=== PATIENT | female | born 1995 | race Caucasian/White ===

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

== ENCOUNTER → 2017-01-09 | Outpatient (REF) | payer BC ==
[~2017-01-09] MED LIST: AMOX500C; NAPR550T3; PRED20TA PO
== END ==
LOC: M LAB REF 08:45
PROVIDERS: ATTEND Physician Assistant
DX: J02.9 Acute pharyngitis, unspecified (principal)

== ENCOUNTER → 2017-02-16 | Outpatient (REF) | payer BC ==
[~2017-02-16] MED LIST changes: +NAPR550T22; -NAPR550T3
== END ==
LOC: M LAB REF 17:14
PROVIDERS: ATTEND Physician Assistant
DX: J02.9 Acute pharyngitis, unspecified (principal); J01.10 Acute frontal sinusitis, unspecified

== ENCOUNTER → 2017-03-02 | Outpatient (REF) | payer BC | LOC: M LAB REF 14:14 | PROVIDERS: ATTEND Advanced Practice Midwife | DX: Z11.3 Encounter for screening for infections with a predominantly sexual mode of transmission (principal) ==

== ENCOUNTER → 2017-03-02 | Outpatient (CLI) | payer BC | LOC: M SMT 08:36 | PROVIDERS: ATTEND Advanced Practice Midwife | DX: Z11.3 Encounter for screening for infections with a predominantly sexual mode of transmission (principal) ==

== ENCOUNTER → 2017-03-03 | Outpatient (CLI) | payer BC ==
--- NOTE | 2017-03-03 13:21 | REP ---
PELVIC ULTRASOUND: Real-time sonographic evaluation of the pelvis performed utilizing transabdominal and endovaginal technique. The bladder measures 5.3 x 6.9 x 8.1 cm. The uterus measures 7.2 x 3.6 x 4.0 cm. Endometrial thickness is 5 mm. There is an IUD in place in the endometrial canal. Right ovary measures 2.1 x 1.7 x 2.3 cm. Left ovary is somewhat enlarged measuring 4.3 x 3.1 x 3.9 cm. The left ovary contains a small complex cyst 2.7 x 2.1 x 2.8 cm. There is blood flow seen in each ovary with duplex Doppler evaluation, with no torsion, RI right ovary 0.35 and left ovary 0.54. A small amount of free fluid is seen in the cul-de-sac. IMPRESSION: IUD is seen within the endometrial canal. Small complex cyst left ovary 2.8 cm in maximum diameter. Mild free fluid. Signed by Omid Brantley MD 03/03/2017 05:03 P
== END ==
LOC: M RAD 10:22
PROVIDERS: ATTEND Advanced Practice Midwife
DX: R10.30 Lower abdominal pain, unspecified (principal); N83.202 Unspecified ovarian cyst, left side

== ENCOUNTER → 2017-04-21 | Outpatient (CLI) | payer BC ==
--- NOTE | 2017-04-21 13:17 | REP ---
Pelvic ultrasound including transabdominal and endovaginal ultrasound assessment: The bladder is adequately distended. The uterus is anteverted and normal size measuring 6.4-0.1 x 4.0 cm. The endometrium is not thickened measuring 8.6 ml. There is an IUD within the endometrial canal. I suspect that the fundal portion of the IUD is within the myometrium in the left cornu. The ovaries are normal size. Right ovary measures 2.7 x 2.5 x 2.7 cm. Left ovary measures 2.1 x 1.4 x 1.7 cm. There are no dominant ovarian masses or cysts. There is no free fluid in the pelvis. Impression: There is an IUD. I suspect that the fundal portion of the IUD is within the endometrium in the left cornu. Otherwise, negative pelvic ultrasound. Signed by Omid Dhaliwal MD 04/21/2017 01:08 P
== END ==
LOC: M RAD 11:39
PROVIDERS: ATTEND Advanced Practice Midwife
DX: R10.30 Lower abdominal pain, unspecified (principal)

== ENCOUNTER → 2017-06-21 | Outpatient (REF) | payer BC | LOC: M LAB REF 13:17 | PROVIDERS: ATTEND Physician Assistant | DX: R30.0 Dysuria (principal) ==

== ENCOUNTER → 2017-09-13 | Outpatient (REF) | payer BC ==
[2017-09-13 21:17] LABS: CHLAMYDIA DNA AMPLIFICATION NEGATIVE (NEGATIVE); GC DNA AMPLIFICATION NEGATIVE (NEGATIVE)
== END ==
LOC: M LAB REF 17:04
DX: Z11.3 Encounter for screening for infections with a predominantly sexual mode of transmission (principal)
CPT/HCPCS: 87591

== ENCOUNTER → 2017-11-01 | Outpatient (CLI) | payer BC ==
[2017-11-01 15:18] LABS: CHLAMYDIA DNA AMPLIFICATION NEGATIVE (NEGATIVE); GC DNA AMPLIFICATION NEGATIVE (NEGATIVE)
[2017-11-04 12:15] LABS: HEPATITIS B SURFACE ANTIGEN NEGATIVE (NEGATIVE)
[2017-11-04 12:28] LABS: HEPATITIS C VIRUS ABY INDEX < 0.0 INDEX (<0.8)
[2017-11-04 12:28] LABS: HEPATITIS B CORE ANTIBODY IGM NEGATIVE (NEGATIVE)
[2017-11-04 12:29] LABS: HIV 1&2 SCREEN CENTAUR NEGATIVE (NEGATIVE)
[2017-11-04 12:30] LABS: HEPATITIS A ANTIBODY IGM NEGATIVE (NEGATIVE)
== END ==
LOC: M SMT 10:17
DX: Z30.430 Encounter for insertion of intrauterine contraceptive device (principal)
CPT/HCPCS: 87340

== ENCOUNTER → 2019-01-02 | Outpatient (REF) | payer BC ==
[~2019-01-02] MED LIST changes: +NAPR-832; -NAPR550T22
[2019-01-02 21:09] LABS: CHLAMYDIA DNA AMPLIFICATION NEGATIVE (NEGATIVE); GC DNA AMPLIFICATION NEGATIVE (NEGATIVE)
== END ==
LOC: M LAB REF 17:45
PROVIDERS: ATTEND Advanced Practice Midwife
DX: Z11.3 Encounter for screening for infections with a predominantly sexual mode of transmission (principal); Z12.4 Encounter for screening for malignant neoplasm of cervix
CPT/HCPCS: 87491; 87591; G0123

== ENCOUNTER → 2019-01-09 | Outpatient (CLI) | payer BC ==
--- NOTE | 2019-01-09 15:47 | REP ---
Clinical: IUD placement. Technique: Transabdominal pelvic ultrasound followed by transvaginal examination for better evaluation of the endometrium and adnexa. Findings: Bladder appears normal and measures 7.1 x 6.3 x 4.5 cm. Heterogeneous anteverted uterus measures 6.3 x 2.9 x 4.7 cm. Endometrial complex measures 3.3 mm thickness. IUD identified in central satisfactory position. The bilateral ovaries are normal in appearance. Right ovary measures 2.5 x 1.8 x 2.4 cm. Left ovary measures 2.4 x 1.1 x 2.3 cm. No pelvic free fluid or adnexal mass lesion. Impression: Normal pelvic ultrasound. IUD in satisfactory position. Electronically Signed by Poncho Carranza MD 01/09/2019 03:38 P
== END ==
LOC: M RAD 14:47
PROVIDERS: ATTEND Advanced Practice Midwife
DX: Z30.431 Encounter for routine checking of intrauterine contraceptive device (principal)

== ENCOUNTER → 2019-03-06 | Outpatient (REF) | payer BC | LOC: M LAB REF 13:03 | PROVIDERS: ATTEND Physician Assistant | DX: J02.9 Acute pharyngitis, unspecified (principal) ==

== ENCOUNTER → 2019-03-20 | Outpatient (CLI) | payer BC ==
[2019-03-21 13:34] LABS: HEPATITIS A ANTIBODY IGM NEGATIVE (NEGATIVE); HEPATITIS B CORE ANTIBODY IGM NEGATIVE (NEGATIVE); HEPATITIS B SURFACE ANTIGEN NEGATIVE (NEGATIVE); HEPATITIS C VIRUS ABY INDEX < 0.0 INDEX (<0.8); HIV 1&2 SCREEN CENTAUR NEGATIVE (NEGATIVE)
== END ==
LOC: M SMT 08:44
PROVIDERS: ATTEND Advanced Practice Midwife
DX: Z11.3 Encounter for screening for infections with a predominantly sexual mode of transmission (principal)

== ENCOUNTER → 2019-03-20 | Outpatient (REF) | payer BC ==
[2019-03-20 16:12] LABS: CHLAMYDIA DNA AMPLIFICATION NEGATIVE (NEGATIVE); GC DNA AMPLIFICATION NEGATIVE (NEGATIVE)
== END ==
LOC: M LAB REF 13:31
PROVIDERS: ATTEND Advanced Practice Midwife
DX: Z11.3 Encounter for screening for infections with a predominantly sexual mode of transmission (principal)